=== PATIENT | male | born 1990 | race African-American/Black ===

== ENCOUNTER → 2017-07-17 | Outpatient (REF) | payer OTHER | LOC: M SFHCLERA 12:15 | DX: L08.9 Local infection of the skin and subcutaneous tissue, unspecified (principal) | CPT/HCPCS: 87077 ==

== ENCOUNTER → 2017-09-01 | Outpatient (CLI) | payer OTHER | LOC: M RAD 10:22 | DX: M86.671 Other chronic osteomyelitis, right ankle and foot (principal) | CPT/HCPCS: 73718 ==